=== PATIENT | male | born 1955 ===

== ENCOUNTER 2020-04-17 14:03 | Inpatient (IN) | payer MEDICAID, OTHER ==
[~2020-04-17] VITALS: Ht 160 cm; Wt 80.7 kg
--- NOTE | 2020-04-17 14:16 | NUR ---
PT BIB AMBULANCE TODAY TRANSFER FROM [facility] FOR HYPOKALEMIA. PT WAS DUE FOR A ROUTINE COLONOSCOPY TODAY TO DETERMINE POTENTIAL CAUSE FOR UNPLANNED WEIGHT LOSS AND WAS FOUND TO HAVE K+ 2.0. PT RESPONDED WITH A VERY MINIMAL IMPROVEMENT AFTER IV K+. PT DENIES ANY COMPLAINTS UPON ARRIVAL TO [facility] ED. PT CHANGED INTO GOWN AND PLACED ON CARDIAC AND VS MONITORS. VSS AT THIS TIME. PT EDUCATED ON ER PROCESS AND VERBALIZES UNDERSTANDING. CALL LIGHT IS WITHIN REACH. PT HAS A CENTRAL LINE UPON ARRIVAL TO [facility] ED.
[2020-04-17] MEDS ORDERED: SODIUM CHLORIDE FLUSH 10ML SYR IVF ONE (15:00)
[2020-04-17 15:09] LABS: BASOPHILS # (AUTO) 0.05 x10^3/uL (0-0.1); BASOPHILS % (AUTO) 1 % (0-1); EOSINOPHILS # (AUTO) 0.03 x10^3/uL (0-0.4); EOSINOPHILS % (AUTO) 0 % (1-7); LYMPHOCYTES # (AUTO) 2.46 x10^3/uL (1-3.4); LYMPHOCYTES % (AUTO) 27 % (22-44); MD NO; MEAN CORPUSCULAR HEMOGLOBIN 30.9 pg (27.5-34.5); MEAN CORPUSCULAR HGB CONC 32.9 g/dL (33.2-36.2); MEAN CORPUSCULAR VOLUME 93.9 fL (81-97); MEAN PLATELET VOLUME 6.8 fL (7.4-10.4); MONOCYTES # (AUTO) 0.89 x10^3/uL (0.2-0.8); MONOCYTES % (AUTO) 10 % (2-9); NEUTROPHILS # (AUTO) 5.76 x10^3/uL (1.8-6.8); NEUTROPHILS % (AUTO) 63 % (42-75); PLATELET COUNT 294 x10^3/uL (130-400)
[2020-04-17 15:14] LABS: ALBUMIN 1.8 g/dL (3.4-5.0); ANION GAP 12 mmol/L (5-15); CHLORIDE 104 mmol/L (98-107); CREATININE 3.47 mg/dL (0.7-1.3)
[2020-04-17] MEDS ORDERED: MELATONIN 5 MG TABLET PO PRN (16:00)
[2020-04-17] MEDS ORDERED: ONDANSETRON 2MG/ML, 2ML IVPush PRN (16:00)
[2020-04-17] MEDS ORDERED: ACETAMINOPHEN 325 MG TABLET PO PRN (16:00)
[2020-04-17] MEDS ORDERED: SODIUM CHLORIDE FLUSH 10ML SYR IVF PRN (16:00)
[2020-04-17] MEDS ORDERED: hydrALAzine 20 MG/ML, 1ML IVPush PRN (16:00)
[2020-04-17] MEDS ORDERED: POLYETHYLENE GLYCOL 17 GM PACKET PO PRN (16:00)
[2020-04-17] MEDS ORDERED: BISACODYL 10 MG SUPP PR PRN (16:00)
[2020-04-17] MEDS ORDERED: POTASSIUM CHLORIDE 10% 40 MEQ/30 ML UDC PO ONE (16:30)
[2020-04-17 16:52] LABS: HCT (SEDRATE) 33.8 % (39.2-51.8)
[2020-04-17] MEDS ORDERED: HEPARIN 5,000 UNITS/ML, 1ML ONE (17:00)
[2020-04-17] MEDS ORDERED: NS + 20MEQ KCL 1,000 ML IV ONE (17:00)
[2020-04-17 17:12] LABS: FREE T4 (FREE THYROXINE) 1.15 ng/dL (0.76-1.46)
--- NOTE | 2020-04-17 17:22 | NUR ---
Assumed care from Benny Ramirez RN, Pt walked to restroom with standby assist. Pt US complete.
--- NOTE | 2020-04-17 17:27 | NUR ---
REPORT OF PT TO BRADLY RANGEL. ALL QUESTIONS ANSWERED.
[2020-04-17] MEDS: HEPARIN 5,000 UNITS/ML, 1ML SQ SCH (17:29)
[2020-04-17] MEDS: NS + 20MEQ KCL 1,000 ML IV SCH (17:30)
--- NOTE | 2020-04-17 17:45 | NUR ---
Pts triple lumen CVAD, the Neddless access device ports were change to out bbraun for infection prevention. This was all done in a sterile fashion. Pt tolerated well.
[2020-04-17 17:51] LABS: POTASSIUM,URINE RANDOM 10 mmol/L; SODIUM,URINE RANDOM 6 mmol/L
[2020-04-17 17:54] LABS: MICROSCOPIC INDICATED
[2020-04-17 17:55] LABS: CHLORIDE,URINE RANDOM < 10 mmol/L
[2020-04-17] MEDS ORDERED: POTASSIUM CHLORIDE 20 MEQ TAB.ER.PRT PO ONE (18:00)
--- NOTE | 2020-04-17 18:51 | NUR ---
Attempted to call no answer at this time.
[2020-04-17] MEDS ORDERED: POTASSIUM CHLORIDE 20 MEQ TAB.ER.PRT ONE (18:59)
--- NOTE | 2020-04-17 19:18 | NUR ---
Hospital bed requested.
--- NOTE | 2020-04-17 19:38 | NUR ---
Pt moved to hospital bed.
[2020-04-17 21:00] VITALS: BP 116/75
[2020-04-17 21:50] VITALS: BP_SYST 85; BP_SYST 95; BP_DIAS 48; BP_DIAS 62
[2020-04-18] VITALS (11 sets, daily range): BP systolic 72–120; BP diastolic 38–76
[2020-04-18] MEDS: HEPARIN 5,000 UNITS/ML, 1ML SQ SCH ×3 (00:54→15:59)
[2020-04-18] MEDS: NS + 20MEQ KCL 1,000 ML IV SCH ×2 (03:48→11:54)
[2020-04-18 04:02] LABS: BASOPHILS # (AUTO) 0.02 x10^3/uL (0-0.1); BASOPHILS % (AUTO) 0 % (0-1); EOSINOPHILS # (AUTO) 0.16 x10^3/uL (0-0.4); EOSINOPHILS % (AUTO) 2 % (1-7); LYMPHOCYTES # (AUTO) 3.07 x10^3/uL (1-3.4); LYMPHOCYTES % (AUTO) 31 % (22-44); MD NO; MEAN CORPUSCULAR HEMOGLOBIN 30.9 pg (27.5-34.5); MEAN CORPUSCULAR HGB CONC 32.8 g/dL (33.2-36.2); MEAN CORPUSCULAR VOLUME 94.3 fL (81-97); MEAN PLATELET VOLUME 6.6 fL (7.4-10.4); MONOCYTES # (AUTO) 0.75 x10^3/uL (0.2-0.8); MONOCYTES % (AUTO) 8 % (2-9); NEUTROPHILS # (AUTO) 6.01 x10^3/uL (1.8-6.8); NEUTROPHILS % (AUTO) 60 % (42-75); PLATELET COUNT 322 x10^3/uL (130-400); RED BLOOD COUNT 3.27 x10^6/uL (4.38-5.82); RED CELL DISTRIBUTION WIDTH 15.8 % (9.4-14.8)
[2020-04-18 04:15] LABS: ALANINE AMINOTRANSFERASE 12 U/L (12-78); ALBUMIN 1.8 g/dL (3.4-5.0); ANION GAP 11 mmol/L (5-15); CALCIUM 7.6 mg/dL (8.5-10.1); CHLORIDE 108 mmol/L (98-107); CREATININE 3.08 mg/dL (0.7-1.3)
[2020-04-18 04:18] LABS: ALKALINE PHOSPHATASE 155 U/L (45-117); BILIRUBIN,TOTAL 0.7 mg/dL (0.2-1.0); CHOL/HDL RATIO 5.4; CHOLESTEROL, TOTAL 145 mg/dL (140-239); HDL CHOL % 19 % (26-37); HDL CHOLESTEROL (DIRECT) 27 mg/dL (40-60); LDL CHOLESTEROL,CALCULATED 84 mg/dL (54-169); LDL/HDL RATIO 3.1 (0.5-3.0); TOTAL PROTEIN 6.4 g/dL (6.4-8.2); TRIGLYCERIDES 169 mg/dL (50-200); VLDL CHOLESTEROL 34 mg/dL (0-25)
[2020-04-18] MEDS: PANTOPRAZOLE 40MG TABLET PO SCH (08:42)
[2020-04-18 14:02] LABS: ANA SCREEN POSITIVE (Negative); ANTI-NUCLEAR ANTIBODY PATTERN HOMOGENOUS
[2020-04-18] MEDS ORDERED: SODIUM CHLORIDE 0.9% 1,000ML IVBOLUS ONE (17:00)
[2020-04-18] MEDS ORDERED: MOVIPREP POWDER 1 PREP KIT PO SCH (19:30)
[2020-04-18] MEDS: SODIUM BICARBONATE 8.4% 150 MEQ, POTASSIUM CHLORIDE 40 MEQ in DEXTROSE 5% 1,000 ML IV SCH (20:40)
[2020-04-18] MEDS ORDERED: MOVIPREP POWDER 1 PREP KIT PO ONE (21:00)
[2020-04-19 01:32] VITALS: BP 102/64
[2020-04-19 03:54] LABS: BASOPHILS % (AUTO) 0 % (0-1); EOSINOPHILS # (AUTO) 0.06 x10^3/uL (0-0.4); EOSINOPHILS % (AUTO) 1 % (1-7); LYMPHOCYTES # (AUTO) 1.95 x10^3/uL (1-3.4); LYMPHOCYTES % (AUTO) 22 % (22-44); MD NO; MEAN CORPUSCULAR HEMOGLOBIN 30.8 pg (27.5-34.5); MEAN CORPUSCULAR HGB CONC 32.7 g/dL (33.2-36.2); MEAN CORPUSCULAR VOLUME 94.2 fL (81-97); MEAN PLATELET VOLUME 6.4 fL (7.4-10.4); MONOCYTES % (AUTO) 10 % (2-9); NEUTROPHILS # (AUTO) 5.83 x10^3/uL (1.8-6.8); NEUTROPHILS % (AUTO) 67 % (42-75); PLATELET COUNT 244 x10^3/uL (130-400); RED BLOOD COUNT 3.17 x10^6/uL (4.38-5.82); RED CELL DISTRIBUTION WIDTH 15.9 % (9.4-14.8)
[2020-04-19 03:59] LABS: ANION GAP 10 mmol/L (5-15); CALCIUM 7.6 mg/dL (8.5-10.1); CHLORIDE 114 mmol/L (98-107); CREATININE 2.38 mg/dL (0.7-1.3)
[2020-04-19] MEDS ORDERED: MOVIPREP POWDER 1 PREP KIT PO ONE (05:00)
[2020-04-19] MEDS: SODIUM BICARBONATE 8.4% 150 MEQ, POTASSIUM CHLORIDE 40 MEQ in DEXTROSE 5% 1,000 ML IV SCH (05:40)
[2020-04-19] MEDS: PANTOPRAZOLE 40MG TABLET PO SCH (07:43)
[2020-04-19] MEDS ORDERED: POTASSIUM CHLORIDE 10% 40 MEQ/30 ML UDC PO STA (09:04)
[2020-04-19 09:08] VITALS: BP 102/68
[2020-04-19] MEDS ORDERED: POTASSIUM CHLORIDE 20 MEQ TAB.ER.PRT ONE (09:13)
[2020-04-19 09:47] VITALS: BP_SYST 100; BP_SYST 102; BP_SYST 92; BP_DIAS 61; BP_DIAS 65; BP_DIAS 70
[2020-04-19] MEDS ORDERED: PROPOFOL 10 MG/ML, 20ML ONE (09:50)
[2020-04-19] MEDS ORDERED: LIDOCAINE PF 2%, 5ML ONE (09:50)
[2020-04-19 13:41] LABS: ANION GAP 8 mmol/L (5-15); CALCIUM 7.7 mg/dL (8.5-10.1); CHLORIDE 115 mmol/L (98-107); CREATININE 2.06 mg/dL (0.7-1.3)
[2020-04-19 14:51] VITALS: BP 113/71
[2020-04-19] MEDS ORDERED: POTASSIUM PHOSPHATE 44 MEQ in SODIUM CHLORIDE 0.9% 500 ML IV ONE (15:00)
[2020-04-19] MEDS: POTASSIUM CHLORIDE IV SCH (18:46)
[2020-04-19] MEDS: SODIUM BICARBONATE IV SCH (18:46)
[2020-04-19] MEDS: DEXTROSE 5% IV SCH (18:46)
[2020-04-19 18:58] VITALS: BP 97/67
[2020-04-20 00:28] VITALS: BP 96/62
[2020-04-20] MEDS: DEXTROSE 5% IV SCH ×2 (03:03→11:10)
[2020-04-20] MEDS: SODIUM BICARBONATE IV SCH ×2 (03:03→11:10)
[2020-04-20] MEDS: POTASSIUM CHLORIDE IV SCH ×2 (03:03→11:10)
[2020-04-20 04:32] LABS: ALANINE AMINOTRANSFERASE 8 U/L (12-78); ALBUMIN 1.4 g/dL (3.4-5.0); ANION GAP 7 mmol/L (5-15); BASOPHILS # (AUTO) 0.03 x10^3/uL (0-0.1); BASOPHILS % (AUTO) 0 % (0-1); CALCIUM 7.1 mg/dL (8.5-10.1); CHLORIDE 113 mmol/L (98-107); EOSINOPHILS # (AUTO) 0.11 x10^3/uL (0-0.4); EOSINOPHILS % (AUTO) 1 % (1-7); LYMPHOCYTES # (AUTO) 1.81 x10^3/uL (1-3.4); LYMPHOCYTES % (AUTO) 23 % (22-44); MD NO; MEAN CORPUSCULAR HEMOGLOBIN 31.3 pg (27.5-34.5); MEAN CORPUSCULAR VOLUME 94.9 fL (81-97); MEAN PLATELET VOLUME 6.8 fL (7.4-10.4); MONOCYTES # (AUTO) 0.43 x10^3/uL (0.2-0.8); MONOCYTES % (AUTO) 5 % (2-9); NEUTROPHILS # (AUTO) 5.62 x10^3/uL (1.8-6.8); NEUTROPHILS % (AUTO) 70 % (42-75); PLATELET COUNT 179 x10^3/uL (130-400); RED BLOOD COUNT 2.71 x10^6/uL (4.38-5.82); RED CELL DISTRIBUTION WIDTH 15.6 % (9.4-14.8)
[2020-04-20 04:34] LABS: ALKALINE PHOSPHATASE 116 U/L (45-117); BILIRUBIN,TOTAL 0.5 mg/dL (0.2-1.0); CREATININE 1.75 mg/dL (0.7-1.3); TOTAL PROTEIN 5.2 g/dL (6.4-8.2)
[2020-04-20 08:00] VITALS: BP 94/57
[2020-04-20] MEDS: PANTOPRAZOLE 40MG TABLET PO SCH (08:17)
[2020-04-20] MEDS ORDERED: POLYETHYLENE GLYCOL 17 GM PACKET PO SCH (09:00)
[2020-04-20] MEDS ORDERED: GADOTERATE 10 MMOL/20 ML VIAL ONE (12:45)
[2020-04-20 17:42] VITALS: BP 95/60
[2020-04-20] MEDS: POLYETHYLENE GLYCOL 17 GM PACKET PO SCH ×2 (17:52→18:02)
[2020-04-20] MEDS: POTASSIUM CHLORIDE 20 MEQ TAB.ER.PRT PO SCH (17:52)
[2020-04-20] MEDS: DRONABINOL 2.5 MG CAPSULE PO SCH (20:31)
[2020-04-20 20:54] VITALS: BP 90/61
[2020-04-20 23:57] VITALS: BP 91/58
[2020-04-21 00:59] VITALS: BP 91/58
[2020-04-21 04:53] LABS: BASOPHILS # (AUTO) 0.02 x10^3/uL (0-0.1); BASOPHILS % (AUTO) 0 % (0-1); EOSINOPHILS # (AUTO) 0.15 x10^3/uL (0-0.4); EOSINOPHILS % (AUTO) 2 % (1-7); LYMPHOCYTES # (AUTO) 1.79 x10^3/uL (1-3.4); LYMPHOCYTES % (AUTO) 23 % (22-44); MD NO; MEAN CORPUSCULAR HGB CONC 32.8 g/dL (33.2-36.2); MEAN CORPUSCULAR VOLUME 94.7 fL (81-97); MEAN PLATELET VOLUME 6.4 fL (7.4-10.4); MONOCYTES # (AUTO) 0.69 x10^3/uL (0.2-0.8); MONOCYTES % (AUTO) 9 % (2-9); NEUTROPHILS # (AUTO) 5.03 x10^3/uL (1.8-6.8); NEUTROPHILS % (AUTO) 66 % (42-75); PLATELET COUNT 166 x10^3/uL (130-400); RED BLOOD COUNT 2.62 x10^6/uL (4.38-5.82); RED CELL DISTRIBUTION WIDTH 16.1 % (9.4-14.8)
[2020-04-21 05:04] LABS: CHLORIDE 114 mmol/L (98-107)
[2020-04-21 05:13] LABS: ANION GAP 8 mmol/L (5-15); CALCIUM 7.3 mg/dL (8.5-10.1); CREATININE 1.53 mg/dL (0.7-1.3)
[2020-04-21] MEDS: POLYETHYLENE GLYCOL 17 GM PACKET PO SCH (05:34)
[2020-04-21 06:45] VITALS: BP 92/60
[2020-04-21] MEDS: DRONABINOL 2.5 MG CAPSULE PO SCH (08:33)
[2020-04-21] MEDS: PANTOPRAZOLE 40MG TABLET PO SCH (08:33)
[2020-04-21] MEDS: POTASSIUM CHLORIDE 20 MEQ TAB.ER.PRT PO SCH (08:35)
[2020-04-21] MEDS ORDERED: MAGNESIUM SULFATE PMX 2GM/50ML 50 ML IV ONE (11:00)
[2020-04-21 12:22] VITALS: BP 107/72
[2020-04-21] MEDS ORDERED: POLY17PO5 PO (13:47)
[2020-04-21] MEDS ORDERED: Dronabinol PO (13:47)
[2020-04-21] MEDS ORDERED: PANT40TA5 PO (13:47)
[2020-04-21] MEDS ORDERED: ONDA4TAB7 PO (17:10)
[2020-04-21] MEDS ORDERED: MEGE800O PO (17:15)
== END 2020-04-21 17:28 | disposition home or self-care (01) | DRG 240 ==
LOC: ED 15:57 → SUATTDRO 15:58 → EDIP 15:58 → ED 15:58 → 5SO 20:36
PROVIDERS: ADMIT Hospitalist; ATTEND Hospitalist
PROC: 0DB68ZX Excision of Stomach, Via Natural or Artificial Opening Endoscopic, Diagnostic (ICD-10-PCS; principal; 2020-04-19 10:00)
PROC: 0DBL8ZZ Excision of Transverse Colon, Via Natural or Artificial Opening Endoscopic (ICD-10-PCS; 2020-04-19 10:00)
DX: C18.9 Malignant neoplasm of colon, unspecified (principal); D63.8 Anemia in other chronic diseases classified elsewhere; E46 Unspecified protein-calorie malnutrition; E83.39 Other disorders of phosphorus metabolism; E83.42 Hypomagnesemia; E87.6 Hypokalemia; E87.2 Acidosis; J45.909 Unspecified asthma, uncomplicated; K29.70 Gastritis, unspecified, without bleeding; K64.8 Other hemorrhoids; N17.9 Acute kidney failure, unspecified; E83.51 Hypocalcemia; K92.1 Melena; Z87.891 Personal history of nicotine dependence; Z83.3 Family history of diabetes mellitus; Z68.31 Body mass index [BMI] 31.0-31.9, adult; Z72.89 Other problems related to lifestyle; Z03.818 Encounter for observation for suspected exposure to other biological agents ruled out
CPT/HCPCS: 36415; 71250; 74176; 74183; 76770; 80048; 80053; 80061; 81001; 82040; 82330; 82378; 82436; 83036; 83690; 83735; 84100; 84133; 84300; 84439; 84443; 85025; 85651; 86038; 86039; 87040; 87086; 87635; 88305; 93005; G0378; J1644; J2704; J3480; J7070; Q0167; A4648; A9575; J3475; J7030; J7040